=== PATIENT | female | born 1995 | race African-American/Black ===

== ENCOUNTER 2016-10-01 11:16 | Emergency (ER) | payer OTHER ==
--- NOTE | ~2016-10-01 | CR63 ---
[facility] A Service of [facility] & [facility] RADIOLOGY TEXT RESULTS PATIENT: LY SANCHEZ LOCATION: [facility] : [birth year] UNIT #: [id number] AGE: [address]: Steve Levi MD SEX: F ORDER DR: [id number] [facility] [address] [place], [place] [address] [id number] E MR#: [id number] Acc #: [id number] NAME: LY SANCHEZ : 1995 SEX: F STUDY DATE/TIME: 10/01/2016 11:44 UNIT: [facility] ROOM: STUDY DESCRIPTION: CR Chest 2 View Attending Physician: Steve Levi M.D. Ordering Physician: Steve Levi M.D. Primary Care Physician: Primary Care Physician No MEDICAL IMAGING REPORT This report is preliminary unless electronic signature is present EXAM Two-view chest 10/01/2016 HISTORY 20-year-old female with left-sided chest pain radiating into the left arm for 4 days. Sickle cell trait. COMPARISON Chest 06/20/2015 FINDINGS 2 views of the chest demonstrate clear lungs. No pleural effusion or pneumothorax. Heart size and mediastinum are normal. Pulmonary vasculature normal. IMPRESSION No acute cardiopulmonary findings. Dictated by... Stef Jones M.D. THIS IS AN ELECTRONICALLY VERIFIED REPORT Stef Jones M.D. at 10/02/2016 8:44 AM BRIANNE/janae TD: 10/01/2016 23:09 JOB #: [id number] MEDICAL IMAGING REPORT Page 1 of 1 COPY
[~2016-10-01 11:16] MED LIST: ADULT MUCU100 MG/5 M PO; CLARITIN10 M3 PO; NO MEDICATIONS; ZOFRAN ODT4 MG PO
== END 2016-10-01 12:35 | disposition home or self-care (01) ==
LOC: CED 11:16
DX: R07.89 Other chest pain (principal)
CPT/HCPCS: 71020; 96372; 99284; J1885

== ENCOUNTER 2016-11-23 20:24 | Emergency (ER) | payer OTHER ==
--- NOTE | ~2016-11-23 | EKG ---
PATIENT: LY SANCHEZ UNIT #: [id number] Ventricular Rate: 75 BPM Atrial Rate: 75 BPM P-R Interval: 116 ms QRS Duration: 74 ms Q-T Interval: 370 ms QTC Calculation(Bezet): 413 ms P [place]: 72 degrees Calculated R [place]: 75 degrees Calculated T [place]: 53 degrees Diagnosis Line: Sinus rhythm with marked sinus arrhythmia Diagnosis Line: Otherwise normal ECG Diagnosis Line: When compared with ECG of 20-JUN-2015 22:47, Diagnosis Line: No significant change was found Diagnosis Line: Confirmed by DAYANA SMITH MD ([id number]) on 11/26/2016 Diagnosis Line: 4:15:56 PM INTERPRETING MD: SARAH KEENE
--- NOTE | ~2016-11-23 | US85 ---
[facility] A Service of [facility] & [facility] RADIOLOGY TEXT RESULTS PATIENT: LY SANCHEZ LOCATION: [facility] : [birth year] UNIT #: [id number] AGE: [address]: Radha Mojica MD SEX: F ORDER DR: [id number] [facility] [address] [place], [place] [address] [id number] E MR#: [id number] Acc #: [id number] NAME: LY SANCHEZ : 1995 SEX: F STUDY DATE/TIME: 11/23/2016 22:27 UNIT: [facility] ROOM: STUDY DESCRIPTION: LE Veins Unilat or Ltd Stdy Attending Physician: Radha Mojica M.D. Ordering Physician: Radha Mojica M.D. MEDICAL IMAGING REPORT This report is preliminary unless electronic signature is present EXAM Venous Doppler ultrasound, left leg, 11/23/2016 HISTORY 21-year-old female in the ED complaining of 2-day history of left leg pain. TECHNIQUE Venous ultrasound examination of the left lower extremity was performed using grayscale, spectral Doppler and color flow Doppler imaging. FINDINGS The examination is negative. There is no evidence of left lower extremity deep venous thrombus from the groin to the lower calf. Visualized greater saphenous vein is also patent. IMPRESSION Negative examination. No evidence of left lower extremity deep venous thrombosis. Dictated by... Damir Silveira M.D. THIS IS AN ELECTRONICALLY VERIFIED REPORT Damir Silveira M.D. at 11/24/2016 6:03 AM DELGADO/gera TD: 11/23/2016 23:01 JOB #: [id number] MEDICAL IMAGING REPORT Page 1 of 1 COPY
--- NOTE | ~2016-11-23 | CT16 ---
[facility] A Service of [facility] RADIOLOGY TEXT RESULTS PATIENT: LY SANCHEZ LOCATION: [facility] : [birth year] UNIT #: [id number] AGE: [address]: Radha Mojica MD SEX: F ORDER DR: [id number] [place] [id number] [facility] [place], [place] [address] [id number] E MR#: [id number] Acc #: [id number] NAME: LY SANCHEZ : 1995 SEX: F STUDY DATE/TIME: 11/24/2016 0:31 UNIT: [facility] ROOM: STUDY DESCRIPTION: CT Angio Chest for PE Attending Physician: Radha Mojica M.D. Ordering Physician: Radha Mojica M.D. Primary Care Physician: Primary Care Physician No MEDICAL IMAGING REPORT This report is preliminary unless electronic signature is present EXAM CT chest with contrast, pulmonary arteriography protocol, 11/24/16 HISTORY 21-year-old female in the ED complaining of 2-day history of shortness of air, chest pain and fatigue/weakness. TECHNIQUE CT examination of the chest with IV contrast using pulmonary arteriography protocol. CTA images of the pulmonary arteries were reformatted in multiple planes. This CT exam was performed with one or more of the following radiation dose reduction techniques: Automatic exposure control, adjustment of mA and/or kV according to patient size, and iterative reconstruction. FINDINGS Pulmonary arteries are normal in appearance. No evidence of pulmonary embolism. Thoracic aorta is normal in caliber. Heart size is normal, and there is no pericardial effusion. The lungs are expanded and clear. No pulmonary infiltrate, pneumothorax or pleural effusion. No visible rib fracture or other chest wall abnormality. Limited upper abdominal images are unremarkable. IMPRESSION Negative chest CT examination using pulmonary arteriography protocol. Dictated by... Damir Silveira M.D. THIS IS AN ELECTRONICALLY VERIFIED REPORT Damir Silveira M.D. at 11/24/2016 6:04 AM [facility] A Service of [facility] RADIOLOGY TEXT RESULTS PATIENT: LY SANCHEZ [id number] [birth year] UNIT #: [id number] AGE: [address]: Radha Mojica MD SEX: F ORDER DR: DELGADO/janae TD: 11/24/2016 01:39 JOB #: [id number] MEDICAL IMAGING REPORT Page 1 of 1 COPY
--- NOTE | ~2016-11-23 | CR72 ---
[facility] A Service of [facility] & [facility] RADIOLOGY TEXT RESULTS PATIENT: LY SANCHEZ LOCATION: [facility] : [birth year] UNIT #: [id number] AGE: [address]: Radha Mojica MD SEX: F ORDER DR: [id number] [facility] [address] [place], [place] [address] [id number] E MR#: [id number] Acc #: [id number] NAME: LY SANCHEZ : 1995 SEX: F STUDY DATE/TIME: 11/23/2016 23:03 UNIT: [facility] ROOM: STUDY DESCRIPTION: CR Chest Single View Portable Attending Physician: Radha Mojica M.D. Ordering Physician: Radha Mojica M.D. Primary Care Physician: Primary Care Physician No MEDICAL IMAGING REPORT This report is preliminary unless electronic signature is present EXAM Chest x-ray, 11/23/16 HISTORY 21-year-old female in the ED complaining of 3-day history of chest pain, cough and chills. TECHNIQUE AP portable upright chest x-ray. FINDINGS Heart size and pulmonary vascularity are normal. The lungs are expanded and clear. No visible pulmonary infiltrate or pleural effusion. No change since 10/01/16. IMPRESSION Negative chest. Dictated by... Damir Silveira M.D. THIS IS AN ELECTRONICALLY VERIFIED REPORT Damir Silveira M.D. at 11/24/2016 6:04 AM DELGADO/janae TD: 11/23/2016 23:53 JOB #: [id number] MEDICAL IMAGING REPORT Page 1 of 1 COPY
[2016-11-23 23:13] LABS: POC - CKMB <1.0 ng/mL (0.0-7.9); POC - TROPONIN <0.05 ng/mL (<=0.05)
[2016-11-23 23:16] LABS: BASOPHIL% 0.8 % (0-2.5); DIFF IND NO; EOSINOPHIL# 0.1 X10e3 (0-0.7); EOSINOPHIL% 1.8 % (0.0-7.0); HEMATOCRIT 34.3 % (35.0-45.0); HEMOGLOBIN 11.6 gm/dL (12.0-16.0); LYMPHOCYTE# 2.5 X10e3 (1.0-3.5); LYMPHOCYTE% 41.8 % (17.0-45.0); MEAN CELL VOLUME 84.5 FL (83-96); MEAN CORPUSCULAR HEMOGLOBIN 28.6 PG (28-34); MEAN CORPUSCULAR HGB CONC 33.8 g/dL (30-36); MEAN PLATELET VOLUME 9.6 FL (6.5-11.5); MONOCYTE# 0.5 X10e3 (0-1.0); MONOCYTE% 7.8 % (3.0-12.0); NEUTROPHIL# 2.9 X10e3 (1.5-7.1); NEUTROPHIL% 47.8 % (40-75); PLATELET COUNT 180 X10e3 (140-420); RED BLOOD COUNT 4.06 X10e (3.90-5.30); RED CELL DISTRIBUTION WIDTH 14.2 % (11.0-15.5)
[2016-11-23 23:43] LABS: ALBUMIN SERUM 3.9 g/dL (3.5-5.0); ALKALINE PHOSPHATASE 62 U/L (32-92); ALT (SGPT) 11 U/L (10-40); AST (SGOT) 19 U/L (10-42); BILIRUBIN, DIRECT 0.1 mg/dL (0.0-0.2); BILIRUBIN,INDIRECT 0.8 mg/dL (0.0-0.9); BILIRUBIN,TOTAL 0.9 mg/dL (0.2-2.0); BLOOD UREA NITROGEN 11 mg/dL (9-23); BUN/CREATININE RATIO 18.33; CALCIUM SERUM 8.8 mg/dL (8.4-10.2); CARBON DIOXIDE 24 mmol/L (22-31); CHLORIDE 103 mmol/L (100-111); CREATININE SERUM 0.6 mg/dL (0.6-1.4); GLUCOSE FASTING 92 mg/dL (70-110); POTASSIUM 3.9 mmol/L (3.5-5.1); PROTEIN TOTAL SERUM 6.5 g/dL (6.0-8.3); SODIUM 135 mmol/L (135-145)
[2016-11-23 23:44] LABS: ALCOHOL BLOOD <5 mg/dL (0)
[2016-11-24 00:15] LABS: CULTURE INDICATED? YES; URINE APPEARANCE CLOUDY; URINE BACTERIA AUWI 2+ (NEGATIVE); URINE BILIRUBIN NEG (NEG); URINE BLOOD NEG (NEG); URINE COLOR YELLOW; URINE GLUCOSE NEG (NEG); URINE KETONE TRACE (NEG); URINE LEUKOCYTE ESTERASE 3+ (NEG); URINE NITRATE NEG (NEG); URINE PH 5.5 (5-8); URINE PROTEIN TRACE (NEG); URINE SOURCE CLEAN CATCH; URINE SPECIFIC GRAVITY 1.018 (1.003-1.035); URINE SQUAMOUS EPITHELIAL CELL FEW /[HPF]; UWBCS1 AUWI 100-200 (0-5)
[2016-11-24 00:36] LABS: AMPHETAMINE NEG (NEG); BARBITURATES NEG (NEG); BENZODIAZEPINES NEG (NEG); COCAINE NEG (NEG); MARIJUANA NEG (NEG); OPIATES NEG (NEG); TRICYCLIC ANTIDEPRESSANTS NEG (NEG); U METHADONE NEG (NEG)
== END 2016-11-24 01:54 | disposition home or self-care (01) ==
LOC: CED 20:24
PROVIDERS: Emergency Medicine
DX: N39.0 Urinary tract infection, site not specified (principal); R53.81 Other malaise; D64.9 Anemia, unspecified; D57.3 Sickle-cell trait
CPT/HCPCS: 36415; 71010; 71275; 80048; 80076; 80307; 81003; 82553; 84484; 84703; 85025; 85379; 87086; 93005; 93971; 96360; 96361; 99284; G0480; Q9967